=== PATIENT | female | born 1975 | race Caucasian/White ===

== ENCOUNTER → 2017-11-07 | Outpatient (CLI) | payer BC ==
[~2017-11-07] MED LIST: LEVO50TA6 PO; PANT40TA PO; RIVA1TAB7 OR; SPIR25TA6 PO; TOPI25TA10 PO; VENL37.593 PO; WLLXL300 PO
--- NOTE | 2017-11-07 17:41 | DIAGNOSTIC IMAGING REPORT ---
L VENOUS DOPP LOWER EXT UNILAT HISTORY: 42 years-old Female LEFT, CALF PAIN, SWELLING acute pain and swelling of the left lower leg COMPARISON: Duplex venous Doppler study 02/08/2016 TECHNIQUE: Multiple real-time sonographic images of the left lower extremity deep venous structures were obtained assessing grayscale appearance, color and spectral flow FINDINGS: The common femoral, profunda femoris, superficial femoral veins, and popliteal veins are patent and appear unremarkable. Occlusive thrombus is noted within one of the paired posterior tibial veins. Nonocclusive thrombus involves one of the two peroneal veins. There is otherwise normal flow, phasicity, compressibility and augmentation. IMPRESSION: 1. Occlusive deep venous thrombosis of the posterior tibial vein. 2. Nonocclusive thrombus involves one of the two peroneal veins. The above report was generated using voice recognition software. It may contain grammatical, syntax or spelling errors. Electronically signed by: Estevan Hamm M.D. 11/07/2017 5:40 PM Dictated Date/Time: 11/07/2017 5:37 PM
== END | disposition home or self-care (01) ==
LOC: C.ULTR 16:54
DX: I82.442 Acute embolism and thrombosis of left tibial vein (principal); R60.0 Localized edema